=== PATIENT | male | born 1970 | race Caucasian/White ===

== ENCOUNTER 2018-11-20 13:03 | Emergency (ER) | payer SELFPAY ==
[~2018-11-20] VITALS: Ht 188 cm; Wt 79.4 kg
[2018-11-20 13:05] VITALS: BP 122/73
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
[2018-11-20] MEDS ORDERED: TYLENOL EXTRA500 MG ORAL (13:16)
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
[2018-11-20 13:21] VITALS: BP 122/73
--- NOTE | 2018-11-20 13:21 | NUR ---
ED Nurse Note: Pt is ready to be discharged by ERMD. Discharge paper and prescription given, mother verbalized understanding of discharge instruction. AOx4, VSS. Wristband removed. Pt ambulated out with steady gait with all belongings.
== END 2018-11-20 13:22 | disposition home or self-care (01) ==
LOC: EMR 13:18
DX: S70.12XA Contusion of left thigh, initial encounter (principal); S70.312A Abrasion, left thigh, initial encounter; V13.4XXA Pedal cycle driver injured in collision with car, pick-up truck or van in traffic accident, initial encounter; Y93.55 Activity, bike riding; Y92.410 Unspecified street and highway as the place of occurrence of the external cause
CPT/HCPCS: 99282